=== PATIENT | female | born 2000 | race Caucasian/White ===

== ENCOUNTER 2021-05-09 11:20 | Inpatient (IN) | payer OTHER ==
[2021-05-09] MEDS ORDERED: SODIUM CHLORIDE 1,000 ML IV STA (12:28)
[2021-05-09] MEDS ORDERED: ACETAMINOPHEN 1000 MG/100 ML VIAL (NON FORMULARY) IVPB ONE (12:28)
[2021-05-09] MEDS ORDERED: METOCLOPRAMIDE HCL INJECTION 10 MG/2 ML VIAL IVPB ONE (12:28)
[2021-05-09] MEDS ORDERED: METOCLOPRAMIDE HCL INJECTION 10 MG/2 ML VIAL ONE (12:32)
[2021-05-09] MEDS ORDERED: ACETAMINOPHEN INJECTION 100 ML IVPB ONE (12:33)
[2021-05-09 13:14] LABS: BASO % 0.7 % (0-2.0); EOS % 0.6 % (0-4.5); HEMATOCRIT 37.2 % (32.4-45.2); HEMOGLOBIN 12.2 GM/dL (10.7-15.3); LYMPH % 21.2 % (8-40); MCH 28.1 pg (25.7-33.7); MCHC 32.7 g/dl (32.0-36.0); MEAN PLT VOLUME 9.1 fl (7.5-11.1); MONO % 8.9 % (3.8-10.2); NEUT % 68.6 % (42.8-82.8); PLATELET COUNT 281 10^3/uL (134-434); RBC 4.33 M/mm3 (3.60-5.2); RDW 16.2 % (11.6-15.6); WHITE BLOOD COUNT 6.4 K/mm3 (4.0-10.0)
[2021-05-09 13:23] LABS: INR 1.01 (0.83-1.09); PROTHROMBIN TIME (PATIENT) 12.4 SEC (9.7-13.0)
[2021-05-09 14:10] LABS: CALCIUM 9.3 mg/dL (8.5-10.1)
[2021-05-09 14:11] LABS: BLOOD UREA NITROGEN 8.1 mg/dL (7-18)
[2021-05-09 14:13] LABS: CREATININE 0.7 mg/dL (0.55-1.3)
[2021-05-09 14:14] LABS: BILIRUBIN,TOTAL 2.2 mg/dL (0.2-1)
[2021-05-09 14:46] LABS: HCG,QUALITATIVE URINE Negative
[2021-05-09 14:47] LABS: URINE APPEARANCE CLEAR; URINE BILIRUBIN NEGATIVE (NEGATIVE); URINE COLOR YELLOW; URINE GLUCOSE (UA) NEGATIVE (NEGATIVE); URINE KETONE NEGATIVE (NEGATIVE); URINE LEUK ESTERASE NEGATIVE (NEGATIVE); URINE NITRITE NEGATIVE (NEGATIVE); URINE PROTEIN NEGATIVE (NEGATIVE); URINE UROBILINOGEN 0.2 mg/dL (0.2-1.0)
[2021-05-09] MEDS ORDERED: morphine CARPU-JECT 2 MG/1 ML DISP.SYRIN IVPUSH ONE (15:55)
[2021-05-09] MEDS ORDERED: METOCLOPRAMIDE HCL INJECTION 10 MG/2 ML VIAL IVPUSH PRN (15:59)
[2021-05-09] MEDS ORDERED: SODIUM CHLORIDE 1,000 ML IV SCH ×2 (16:00)
[2021-05-09] MEDS ORDERED: PIPERACILLIN/TAZOB 3.375 GM 3.375 GM/50 ML BAG IVPB ONE (19:47)
[2021-05-09] MEDS: PIPERACILLIN/TAZOB 3.375 GM 3.375 GM in DEXTROSE 5%-WATER - 50 ML IVPB SCH (19:53)
[2021-05-09] MEDS ORDERED: MORPHINE SULFATE 2 MG/ML VIAL ONE (20:00)
[2021-05-10] MEDS ORDERED: PIPERACILLIN/TAZOBACTAM 3.375 GM VIAL IVPB ONE ×3 (00:19→17:40)
[2021-05-10] MEDS ORDERED: DEXTROSE 5%-WATER - 50 ML IVPB ONE ×3 (00:19→17:40)
[2021-05-10] MEDS: MORPHINE SULFATE 2 MG/ML VIAL IVPUSH PRN ×3 (00:40→22:57)
[2021-05-10] MEDS: PIPERACILLIN/TAZOB 3.375 GM 3.375 GM in DEXTROSE 5%-WATER - 50 ML IVPB SCH ×4 (01:00→17:45)
[2021-05-10 03:06] VITALS: BMI 24.1
[2021-05-10 08:44] LABS: BASO % 0.4 % (0-2.0); EOS % 1.1 % (0-4.5); HEMATOCRIT 33.7 % (32.4-45.2); HEMOGLOBIN 11.2 GM/dL (10.7-15.3); LYMPH % 29.6 % (8-40); MCH 28.4 pg (25.7-33.7); MCHC 33.2 g/dl (32.0-36.0); MEAN CELL VOLUME 85.7 fl (80-96); MONO % 8.4 % (3.8-10.2); NEUT % 60.5 % (42.8-82.8); PLATELET COUNT 268 10^3/uL (134-434); RBC 3.93 M/mm3 (3.60-5.2); WHITE BLOOD COUNT 5.9 K/mm3 (4.0-10.0)
[2021-05-10 08:57] LABS: BLOOD UREA NITROGEN 12.6 mg/dL (7-18); CALCIUM 8.4 mg/dL (8.5-10.1)
[2021-05-10 08:58] LABS: ALBUMIN 3.4 g/dl (3.4-5.0); MAGNESIUM 2.1 mg/dL (1.8-2.4)
[2021-05-10 09:01] LABS: CREATININE 0.7 mg/dL (0.55-1.3); PHOSPHOROUS 3.9 mg/dL (2.5-4.9)
[2021-05-10 09:03] LABS: BILIRUBIN,TOTAL 1.4 mg/dL (0.2-1); TOT PROT 6.5 g/dl (6.4-8.2)
[2021-05-10 09:07] LABS: SGOT/AST 282 U/L (15-37); SGPT/ALT 929 U/L (13-61)
[2021-05-10 09:08] LABS: ALBUMIN 3.4 g/dl (3.4-5.0)
[2021-05-10 09:09] LABS: BILIRUBIN,DIRECT 0.3 mg/dL (0.0-0.2); TOT PROT 6.6 g/dl (6.4-8.2)
[2021-05-10 09:11] LABS: BILIRUBIN,TOTAL 1.4 mg/dL (0.2-1)
[2021-05-10 09:12] LABS: ALK PHOS 240 U/L (45-117)
[2021-05-10] MEDS ORDERED: ROCURONIUM BROMIDE 100 MG/10 ML VIAL ONE (19:31)
[2021-05-10] MEDS ORDERED: PROPOFOL 20 ML ONE ×2 (19:31)
[2021-05-10] MEDS ORDERED: ceFAZolin SODIUM 1 GM VIAL IVPB ONE (20:06)
[2021-05-10] MEDS ORDERED: ONDANSETRON 4 MG/2 ML VIAL IVPUSH PRN ×2 (20:11→21:09)
[2021-05-10] MEDS ORDERED: LACTATED RINGERS SOLUTION 1,000 ML IV SCH (20:15)
[2021-05-10] MEDS ORDERED: NEOSTIGMINE METHYLSULFATE 0.5 MG/ML - 10 ML MDV ONE (20:43)
[2021-05-10] MEDS ORDERED: METOCLOPRAMIDE HCL INJECTION 10 MG/2 ML VIAL IVPUSH PRN (21:09)
[2021-05-10] MEDS: LACTATED RINGERS SOLUTION 1,000 ML IV SCH (23:29)
[2021-05-11] MEDS ORDERED: PIPERACILLIN/TAZOBACTAM 3.375 GM VIAL IVPB ONE ×3 (01:48→17:56)
[2021-05-11] MEDS ORDERED: DEXTROSE 5%-WATER - 50 ML IVPB ONE ×3 (01:49→17:56)
[2021-05-11] MEDS: PIPERACILLIN/TAZOB 3.375 GM 3.375 GM in DEXTROSE 5%-WATER - 50 ML IVPB SCH ×3 (01:55→18:28)
[2021-05-11] MEDS: LACTATED RINGERS SOLUTION 1,000 ML IV SCH ×3 (03:08→22:18)
[2021-05-11] MEDS: MORPHINE SULFATE 2 MG/ML VIAL IVPUSH PRN ×3 (04:41→22:18)
[2021-05-11 09:31] LABS: BASO % 0.2 % (0-2.0); EOS % 0.1 % (0-4.5); HEMATOCRIT 32.8 % (32.4-45.2); LYMPH % 14.2 % (8-40); MCH 28.6 pg (25.7-33.7); MCHC 33.6 g/dl (32.0-36.0); MEAN CELL VOLUME 85.1 fl (80-96); MEAN PLT VOLUME 9.7 fl (7.5-11.1); MONO % 8.2 % (3.8-10.2); NEUT % 77.3 % (42.8-82.8); PLATELET COUNT 270 10^3/uL (134-434); RBC 3.85 M/mm3 (3.60-5.2); RDW 15.7 % (11.6-15.6); WHITE BLOOD COUNT 7.7 K/mm3 (4.0-10.0)
[2021-05-11 10:18] LABS: ALBUMIN 3.3 g/dl (3.4-5.0); MAGNESIUM 1.9 mg/dL (1.8-2.4)
[2021-05-11 10:20] LABS: CREATININE 0.5 mg/dL (0.55-1.3)
[2021-05-11 10:23] LABS: ALBUMIN 3.3 g/dl (3.4-5.0); CALCIUM 8.7 mg/dL (8.5-10.1)
[2021-05-11 10:24] LABS: BLOOD UREA NITROGEN 5.4 mg/dL (7-18)
[2021-05-11 10:26] LABS: BILIRUBIN,DIRECT 0.3 mg/dL (0.0-0.2)
[2021-05-11 10:28] LABS: BILIRUBIN,TOTAL 1.1 mg/dL (0.2-1); TOT PROT 6.5 g/dl (6.4-8.2)
[2021-05-11 10:29] LABS: BILIRUBIN,TOTAL 1.1 mg/dL (0.2-1)
[2021-05-11 10:30] LABS: TOT PROT 6.6 g/dl (6.4-8.2)
[2021-05-12] MEDS ORDERED: PIPERACILLIN/TAZOBACTAM 3.375 GM VIAL IVPB ONE ×3 (01:18→16:38)
[2021-05-12] MEDS ORDERED: DEXTROSE 5%-WATER - 50 ML IVPB ONE ×3 (01:18→16:38)
[2021-05-12] MEDS: PIPERACILLIN/TAZOB 3.375 GM 3.375 GM in DEXTROSE 5%-WATER - 50 ML IVPB SCH ×3 (01:36→17:21)
[2021-05-12 09:00] LABS: BASO % 0.4 % (0-2.0); EOS % 1.2 % (0-4.5); HEMATOCRIT 32.4 % (32.4-45.2); HEMOGLOBIN 10.9 GM/dL (10.7-15.3); LYMPH % 18.7 % (8-40); MCH 28.7 pg (25.7-33.7); MCHC 33.7 g/dl (32.0-36.0); MEAN CELL VOLUME 85.2 fl (80-96); MEAN PLT VOLUME 9.4 fl (7.5-11.1); MONO % 10.4 % (3.8-10.2); NEUT % 69.3 % (42.8-82.8); PLATELET COUNT 247 10^3/uL (134-434); RBC 3.81 M/mm3 (3.60-5.2); RDW 15.9 % (11.6-15.6); WHITE BLOOD COUNT 6.6 K/mm3 (4.0-10.0)
[2021-05-12 09:25] LABS: CALCIUM 8.5 mg/dL (8.5-10.1)
[2021-05-12 09:26] LABS: BLOOD UREA NITROGEN 6.8 mg/dL (7-18)
[2021-05-12 09:28] LABS: CREATININE 0.5 mg/dL (0.55-1.3)
[2021-05-12 09:30] LABS: BILIRUBIN,TOTAL 1.1 mg/dL (0.2-1); TOT PROT 6.4 g/dl (6.4-8.2)
[2021-05-12] MEDS: LACTATED RINGERS SOLUTION 1,000 ML IV SCH ×2 (11:04→20:44)
[2021-05-13] MEDS ORDERED: DEXTROSE 5%-WATER - 50 ML IVPB ONE ×3 (00:58→17:31)
[2021-05-13] MEDS ORDERED: PIPERACILLIN/TAZOBACTAM 3.375 GM VIAL IVPB ONE ×3 (00:58→17:31)
[2021-05-13] MEDS: PIPERACILLIN/TAZOB 3.375 GM 3.375 GM in DEXTROSE 5%-WATER - 50 ML IVPB SCH ×3 (01:27→18:05)
[2021-05-13] MEDS: LACTATED RINGERS SOLUTION 1,000 ML IV SCH ×3 (05:39→23:21)
[2021-05-13 10:24] LABS: BASO % 0.5 % (0-2.0); EOS % 1.8 % (0-4.5); HEMATOCRIT 34.8 % (32.4-45.2); HEMOGLOBIN 11.7 GM/dL (10.7-15.3); MCH 28.5 pg (25.7-33.7); MCHC 33.6 g/dl (32.0-36.0); MEAN CELL VOLUME 85.1 fl (80-96); MEAN PLT VOLUME 9.6 fl (7.5-11.1); MONO % 9.7 % (3.8-10.2); PLATELET COUNT 263 10^3/uL (134-434); RBC 4.09 M/mm3 (3.60-5.2); RDW 16.1 % (11.6-15.6); WHITE BLOOD COUNT 5.6 K/mm3 (4.0-10.0)
[2021-05-13 11:08] LABS: ALBUMIN 3.5 g/dl (3.4-5.0); BLOOD UREA NITROGEN 4.9 mg/dL (7-18); MAGNESIUM 2.1 mg/dL (1.8-2.4)
[2021-05-13 11:11] LABS: CREATININE 0.6 mg/dL (0.55-1.3); PHOSPHOROUS 3.8 mg/dL (2.5-4.9)
[2021-05-13 11:12] LABS: TOT PROT 7.1 g/dl (6.4-8.2)
[2021-05-14] MEDS ORDERED: PIPERACILLIN/TAZOBACTAM 3.375 GM VIAL IVPB ONE ×3 (01:32→17:11)
[2021-05-14] MEDS ORDERED: DEXTROSE 5%-WATER - 50 ML IVPB ONE ×3 (01:32→17:11)
[2021-05-14] MEDS: PIPERACILLIN/TAZOB 3.375 GM 3.375 GM in DEXTROSE 5%-WATER - 50 ML IVPB SCH ×3 (01:37→17:29)
[2021-05-14] MEDS ORDERED: INDOMETHACIN 50 MG RECTAL SUPPOSITORY PR ONE ×2 (08:00→11:00)
[2021-05-14] MEDS: LACTATED RINGERS SOLUTION 1,000 ML IV SCH (08:38)
[2021-05-14 10:09] LABS: BASO % 0.4 % (0-2.0); EOS % 2.8 % (0-4.5); HEMATOCRIT 36.2 % (32.4-45.2); LYMPH % 25.8 % (8-40); MCH 28.3 pg (25.7-33.7); MCHC 33.1 g/dl (32.0-36.0); MEAN CELL VOLUME 85.5 fl (80-96); MEAN PLT VOLUME 9.2 fl (7.5-11.1); MONO % 8.1 % (3.8-10.2); NEUT % 62.9 % (42.8-82.8); PLATELET COUNT 295 10^3/uL (134-434); RBC 4.23 M/mm3 (3.60-5.2); RDW 15.9 % (11.6-15.6); WHITE BLOOD COUNT 5.3 K/mm3 (4.0-10.0)
[2021-05-14 10:15] LABS: INR 1.07 (0.83-1.09); PROTHROMBIN TIME (PATIENT) 13.2 SEC (9.7-13.0)
[2021-05-14 10:24] LABS: CALCIUM 9.1 mg/dL (8.5-10.1)
[2021-05-14 10:25] LABS: ALBUMIN 3.6 g/dl (3.4-5.0); BLOOD UREA NITROGEN 5.2 mg/dL (7-18)
[2021-05-14 10:27] LABS: CREATININE 0.7 mg/dL (0.55-1.3)
[2021-05-14 10:29] LABS: TOT PROT 7.5 g/dl (6.4-8.2)
[2021-05-14] MEDS ORDERED: MIDAZOLAM HCL 2 MG/2 ML SINGLE DOSE VIAL ONE (12:35)
[2021-05-14] MEDS ORDERED: IOHEXOL 300 MG/ML INFUS..BTL IJ ONE (13:10)
[2021-05-14] MEDS ORDERED: LACTATED RINGERS SOLUTION 1,000 ML/1,000 ML INFUS.BAG IV SCH ×2 (14:15→23:00)
[2021-05-15] MEDS ORDERED: DEXTROSE 5%-WATER - 50 ML IVPB ONE ×2 (01:00→08:35)
[2021-05-15] MEDS ORDERED: PIPERACILLIN/TAZOBACTAM 3.375 GM VIAL IVPB ONE ×2 (01:00→08:34)
[2021-05-15] MEDS: PIPERACILLIN/TAZOB 3.375 GM 3.375 GM in DEXTROSE 5%-WATER - 50 ML IVPB SCH ×3 (01:12→17:00)
[2021-05-15] MEDS ORDERED: LACTATED RINGERS SOLUTION 1,000 ML/1,000 ML INFUS.BAG IV SCH ×2 (08:00→13:44)
[2021-05-15 09:55] LABS: BASO % 0.6 % (0-2.0); HEMATOCRIT 34.6 % (32.4-45.2); HEMOGLOBIN 11.5 GM/dL (10.7-15.3); LYMPH % 21.3 % (8-40); MCH 28.3 pg (25.7-33.7); MCHC 33.3 g/dl (32.0-36.0); MEAN CELL VOLUME 85.1 fl (80-96); MEAN PLT VOLUME 9.2 fl (7.5-11.1); MONO % 6.4 % (3.8-10.2); NEUT % 68.7 % (42.8-82.8); PLATELET COUNT 279 10^3/uL (134-434); RBC 4.07 M/mm3 (3.60-5.2); WHITE BLOOD COUNT 5.1 K/mm3 (4.0-10.0)
[2021-05-15 10:27] LABS: CALCIUM 8.5 mg/dL (8.5-10.1)
[2021-05-15 10:28] LABS: ALBUMIN 3.4 g/dl (3.4-5.0); BLOOD UREA NITROGEN 4.1 mg/dL (7-18)
[2021-05-15 10:30] LABS: BILIRUBIN,DIRECT 0.2 mg/dL (0.0-0.2); BILIRUBIN,TOTAL 0.8 mg/dL (0.2-1); TOT PROT 7.1 g/dl (6.4-8.2)
[2021-05-15 10:31] LABS: CREATININE 0.6 mg/dL (0.55-1.3)
[2021-05-15 14:10] VITALS: BP 99/55; PULSE 69; TEMP 98.1
== END 2021-05-15 17:15 | disposition home or self-care (01) | DRG 263 ==
LOC: JER 11:20 → JERBED 15:54 → J5S 20:57
PROVIDERS: ADMIT Internal Medicine; ATTEND Internal Medicine
PROC: 0FT44ZZ Resection of Gallbladder, Percutaneous Endoscopic Approach (ICD-10-PCS; principal; 2021-05-10 15:00)
PROC: 0FC98ZZ Extirpation of Matter from Common Bile Duct, Via Natural or Artificial Opening Endoscopic (ICD-10-PCS; 2021-05-14)
PROC: BF10YZZ Fluoroscopy of Bile Ducts using Other Contrast (ICD-10-PCS; 2021-05-14)
DX: K80.10 Calculus of gallbladder with chronic cholecystitis without obstruction (principal); R74.01 Elevation of levels of liver transaminase levels; R10.11 Right upper quadrant pain; R11.2 Nausea with vomiting, unspecified
CPT/HCPCS: 36415; 74181-TC; 76000-TC-FY; 76705-TC; 80048; 80053; 80061; 80076; 81003; 82150; 82248; 83690; 83735; 84100; 84703; 85025; 85610; 86140; 86850; 86900; 86901; 87086; 87186; 88304-TC; 93005; 93010; 94010; 94760; 99285-25; C9803; J0131; U0003; U0005